=== PATIENT | female | born 1970 | race Caucasian/White ===

== ENCOUNTER 2017-07-14 09:25 | Emergency (ER) | payer MEDICAID ==
[2017-07-14] MEDS: ALBUTEROL 0.083% (NEB) 2.5 MG/3 ML AMP NEB (11:07)
[2017-07-14] MEDS: IPRATROPIUM (NEB) 0.5 MG/2.5 ML AMP NEB (11:07)
[2017-07-14] MEDS: predniSONE 20 MG TAB PO (11:35)
== END 2017-07-14 12:35 | disposition home or self-care (01) ==
LOC: E/R 09:25 → FTE 12:35
DX: R05 Cough (principal); R06.2 Wheezing; E11.9 Type 2 diabetes mellitus without complications; Z79.4 Long term (current) use of insulin
CPT/HCPCS: 94644; 99284-25